=== PATIENT | male | born 1935 | race Caucasian/White ===

== ENCOUNTER 2017-06-09 14:08 | Observation (INO) | payer MEDICARE, BC ==
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
[2017-06-09] MEDS ORDERED: AMPICILLIN-SULBACTAM 3 GM in SODIUM CHLORIDE 0.9% 100 ML IVPB STA (15:32)
[2017-06-09] MEDS ORDERED: SODIUM CHLORIDE 0.9% 1,000 ML IV SCH (15:45)
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
[2017-06-09 16:13] LABS: Basophils % (A) 0 %; Eosinophils # (A) 0.3 k/uL (0-0.7); Eosinophils % (A) 3 %; HGB 11.9 gm/dL (13.0-17.5); Lymphocytes # (A) 0.4 k/uL (1.0-4.8); Lymphocytes % (A) 4 %; MCH 29.5 pg (25.0-35.0); MCV 92.1 fL (80.0-100.0); Mean Platelet Volume 7.3; Monocytes # (A) 0.8 k/uL (0-1.0); Monocytes % (A) 8 %; Neutrophils # (A) 8.4 k/uL (1.3-7.7); Neutrophils % (A) 82 %; Platelet Count 243 k/uL (150-450); RBC 4.02 m/uL (4.30-5.90); RDW 13.9 % (11.5-15.5); WBC 10.2 k/uL (3.8-10.6)
[2017-06-09 16:18] LABS: Albumin 3.5 g/dL (3.5-5.0); Calcium 8.9 mg/dL (8.4-10.2); Potassium 4.7 mmol/L (3.5-5.1); Total Bilirubin 0.8 mg/dL (0.2-1.3); Total Protein 5.9 g/dL (6.3-8.2)
[2017-06-09 16:26] LABS: Prothrombin Time 18.5 sec (9.0-12.0)
[2017-06-09] MEDS ORDERED: HYDROmorphone 1 MG/ML 1 ML SYRINGE IVP PRN (16:27)
[2017-06-09] MEDS ORDERED: NALOXONE 0.4 MG/ML 1 ML VIAL IV PRN (16:27)
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
[2017-06-09] MEDS ORDERED: MOXIFLOXACIN HCL 0.5% DROPS 3 ML BTL LEFT EYE ONE (17:45)
[2017-06-09 19:02] VITALS: BMI 27.9
[2017-06-09] MEDS ORDERED: GENTAMICIN 0.3% OPHTH DROPS 5 ML BTL BOTH EYES PRN ×2 (19:35→19:57)
[2017-06-09] MEDS ORDERED: ePHEDrine SULFATE/0.9% NACL/PF 50 MG/5 ML SYRINGE IV ONE (19:43)
[2017-06-09] MEDS ORDERED: PROPOFOL 10 MG/ML 20 ML VIAL IV ONE (19:43)
[2017-06-09] MEDS ORDERED: fentaNYL (PF) 50 MCG/ML 2 ML AMP ONE (19:43)
[2017-06-09] MEDS ORDERED: SODIUM CHLORIDE 0.9% 1,000 ML IV ONE (19:43)
[2017-06-09] MEDS ORDERED: NEOSTIGMINE 1 MG/ML 10 ML VIAL ONE (19:43)
[2017-06-09] MEDS ORDERED: GLYCOPYRROLATE 0.2 MG/ML 2 ML VIAL ONE (19:43)
[2017-06-09] MEDS ORDERED: ROCURONIUM BROMIDE 10 MG/ML 10 ML VIAL IV ONE (19:43)
[2017-06-09] MEDS ORDERED: EPINEPHrine 1 MG/ML 1 ML AMP IRRIGATION ONE (20:11)
[2017-06-09] MEDS: SODIUM CHLORIDE 0.9% 1,000 ML IV SCH ×2 (20:11→23:20)
[2017-06-09] MEDS: CYCLOPENTOLATE 1% OPHTH SOLN 2 ML BTL LEFT EYE SCH ×2 (20:12→20:13)
[2017-06-09] MEDS: PHENYLEPHRINE 10% OPHTH DROPS 5 ML BTL LEFT EYE SCH ×2 (20:12→20:13)
[2017-06-09] MEDS ORDERED: CHONDROITIN-SOD HYALURONATE 1 EACH SYRINGE (0.75 ML) INTRAOCULA ONE (20:14)
[2017-06-09] MEDS ORDERED: ATROPINE OPHTH SOLN 1% 5ML BTL LEFT EYE ONE (21:23)
[2017-06-09] MEDS ORDERED: GENTAMICIN 40 MG/ML 2 ML VIAL IRRIGATION ONE (21:24)
[2017-06-09] MEDS ORDERED: TIMOLOL 0.5% OPHTH SOLN (PF) 0.2 ML DROPERETTE LEFT EYE ONE (21:26)
--- NOTE | 2017-06-09 21:32 | P.OP ---
Date of Procedure: 06/09/17 Preoperative Diagnosis: ruptured globe, left Postoperative Diagnosis: same Procedure(s) Performed: exploration and repair of ruptured globe Implants: none Anesthesia: PRICILAA Surgeon: Fermin Ha Estimated Blood Loss (ml): 0 Pathology: other (uveal tissue) Condition: stable Disposition: observation Indications for Procedure: ruptured globe Operative Findings: probable loss of lens, vitreous, and retinal detachment
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
[2017-06-09] MEDS: ATROPINE OPHTH SOLN 1% 5ML BTL LEFT EYE SCH (23:18)
[2017-06-09] MEDS: AMPICILLIN-SULBACTAM 3 GM in SODIUM CHLORIDE 0.9% 100 ML IVPB SCH (23:24)
[2017-06-10] MEDS: AMPICILLIN-SULBACTAM 3 GM in SODIUM CHLORIDE 0.9% 100 ML IVPB SCH (05:36)
[2017-06-10] MEDS: MOXIFLOXACIN HCL 0.5% DROPS 3 ML BTL LEFT EYE SCH ×2 (05:37→09:21)
[2017-06-10 07:42] VITALS: PULSE 48
[2017-06-10 07:43] VITALS: BP 147/64; RESP 15; TEMP 97
[2017-06-10] MEDS ORDERED: WARFARIN 2.5 MG TAB PO SCH (09:00)
[2017-06-10] MEDS ORDERED: LISINOPRIL 5 MG TAB PO SCH (09:00)
[2017-06-10] MEDS ORDERED: PANTOPRAZOLE 40 MG TABLET PO SCH (09:00)
[2017-06-10] MEDS ORDERED: FUROSEMIDE 40 MG TAB PO SCH (09:00)
[2017-06-10] MEDS ORDERED: POTASSIUM CHLORIDE ER 20 MEQ TAB.ER PO SCH (09:00)
[2017-06-10] MEDS ORDERED: LEVOTHYROXINE 88 MCG TAB PO SCH (09:00)
[2017-06-10] MEDS ORDERED: MAGNESIUM OXIDE 400 MG TAB PO SCH (09:00)
[2017-06-10] MEDS ORDERED: ATENOLOL 25 MG TAB PO SCH (09:00)
[2017-06-10] MEDS ORDERED: ASPIRIN 81 MG PO SCH (09:00)
[2017-06-10] MEDS ORDERED: TIMOLOL 0.5% OPHTH DROPS 5 ML BTL LEFT EYE SCH (09:00)
[2017-06-10] MEDS ORDERED: AMIODARONE 200 MG TAB PO SCH (09:00)
[2017-06-10] MEDS: ATROPINE OPHTH SOLN 1% 5ML BTL LEFT EYE SCH ×2 (09:19→14:03)
[2017-06-10] MEDS ORDERED: prednisoLONE ACETATE 1% OPHTH DROPS 5 ML BTL LEFT EYE SCH (10:30)
--- NOTE | 2017-06-10 10:48 | P.PN ---
Progress Note - Text Progress Note Date: 06/10/17 S: 82 y/o POD 1 repair of left eye for ruptured globe. Rested comfortably through the night with head elevated. O: Va w/o correction 20/20 right NLP left IOP: 16 mm Hg @ 1030, OS 05 mm Hg @ 1030 Cornea clear OU Conj: unremarkable OD, left no Alin, incision clean AC: OD unremarkable, OS Chamber formed 5% hyphema Lens: OD 2-3+ NS, OS too unclear to define, godwin through pupil Iris: OD unremarkable, OS difficult view,grossly intact Fundus: OD not exmained, OS no red reflex. A: 1) traumatic rupture globe OS, post surgical repair, no signs of infection, guarded prognosis 2) hyphema OS, traumatic, controlled/manageable P: 1) discharge today on current drops and medications with follow up in [place] with [facility] to see retina next week. 2) protect left eye field artillery cannoneer limit activity and maintain head elevated at least 45 to allow blood to settle Vital Signs - Temperature Temperature: 97 F Temperature Source: Oral - Pulse Right Pulse Oximetery Pulse Rate: 48 Pulse Assessment Method: Palpation Flight Crew Time Clerk Pulse Rate: 50 Pulse Assessment Method: Telemetry - Respirations Respiratory Rate: 15 Oxygen Delivery Method: Room Air O2 Sat by Pulse Oximetry: 98 - Blood Pressure Right Arm Blood Pressure: 147/64 Blood Pressure Mean: 91 Blood Pressure Source: Automatic Cuff
--- NOTE | 2017-06-10 10:49 | P.DS ---
Providers Date of admission: 06/09/17 16:33 Expected date of discharge: 06/10/17 Attending physician: Fermin Ha Consults: [facility] [place] early next week. Primary care physician: Rcaquel Milton Patient Condition at Discharge: Serious Plan - Discharge Summary New Discharge Prescriptions: No Action Warfarin [Coumadin] 2.5 mg PO DAILY Omeprazole 40 mg PO DAILY Multivit-Min/FA/Lycopen/Lutein [Centrum Silver Tablet] 1 tab PO DAILY Lovastatin [Mevacor] 40 mg PO HS Lisinopril [Zestril] 5 mg PO DAILY Furosemide [Lasix] 40 mg PO BID Amiodarone [Cordarone] 200 mg PO DAILY Potassium Chloride [Klor-Con 20] 20 meq PO DAILY Magnesium Oxide [Mag-Ox] 250 mg PO DAILY Levothyroxine Sodium 88 mcg PO DAILY Ferrous Sulfate [Feosol] 325 mg PO DAILY Atenolol [Tenormin] 25 mg PO DAILY Aspirin 81 mg PO DAILY Discharge Medication List Amiodarone [Cordarone] 200 mg PO DAILY 06/09/17 [History] Aspirin 81 mg PO DAILY 06/09/17 [History] Atenolol [Tenormin] 25 mg PO DAILY 06/09/17 [History] Ferrous Sulfate [Feosol] 325 mg PO DAILY 06/09/17 [History] Furosemide [Lasix] 40 mg PO BID 06/09/17 [History] Levothyroxine Sodium 88 mcg PO DAILY 06/09/17 [History] Lisinopril [Zestril] 5 mg PO DAILY 06/09/17 [History] Lovastatin [Mevacor] 40 mg PO HS 06/09/17 [History] Magnesium Oxide [Mag-Ox] 250 mg PO DAILY 06/09/17 [History] Multivit-Min/FA/Lycopen/Lutein [Centrum Silver Tablet] 1 tab PO DAILY 06/09/17 [ History] Omeprazole 40 mg PO DAILY 06/09/17 [History] Potassium Chloride [Klor-Con 20] 20 meq PO DAILY 06/09/17 [History] Warfarin [Coumadin] 2.5 mg PO DAILY 06/09/17 [History] Follow up Appointment(s)/Referral(s): [facility] [place] [Other] - 06/13/17 (Need Retina specialist, pref DR. Racquel Davalos MD [Primary Care Provider] - 1-2 days Patient Instructions/Handouts: *Surgery [facility] - ([facility]) Eye Surgery Discharge Instructions Activity/Diet/Wound Care/Special Instructions: 1) continue home medications without changes 2) Moxifloxacin drops, 1 drop left eye 3 times daily 3) Prednisolone acetate 1% drops, left eye 4 times daily 4) timolol 0.5% drops, left eye 2 times daily. 5) keep left eye protected full timed with shield 6) Sleep with head elevated about 45 - keeps blood settled at bottom of eye and off pupil. 7) avoid showering and getting left eye wet. 8) limit weight limit to 20# or less 9) avoid bending over or staining 10 call [facility] for an appointment early next week. Discharge Disposition: HOME SELF-CARE
[2017-06-10] MEDS ORDERED: ATORVASTATIN 10 MG TAB PO SCH (21:00)
--- NOTE | 2017-06-11 13:25 | DS ---
DISCHARGE SUMMARY DATE OF ADMISSION: 06/09/2017 DATE OF DISCHARGE: 06/10/2017 PRIMARY REASON FOR ADMISSION: Traumatic injury to his left eye. PROCEDURES DURING THE COURSE OF ADMISSION: Repair of ruptured globe, left eye. MEDICATIONS ON DISCHARGE: Are primarily the same medications as listed on admission from home. These include amiodarone 200 mg daily, aspirin 81 mg daily atenolol 25 mg daily, iron sulfate 325 mg daily, Lasix 40 mg twice daily, levothyroxine 88 mcg daily. lisinopril 5 mg daily lovastatin 40 mg daily magnesium oxide 250 mg daily, multivitamin once daily, omeprazole 40 mg daily, potassium 10 mEq daily, potassium chloride 20 mEq once daily, and Coumadin 2.5 mg 6 of 7 days of the week. Additional medications at the time of discharge include moxifloxacin drops 1 in the left eye 3 times daily, prednisolone acetate 1% 1 drop in the left eye 4 times daily, Timolol 0.5% 1 drop twice daily in the left eye. ACTIVITY AND/OR ADDITIONAL INSTRUCTIONS: The patient needs to limit his weight lifting to 20 pounds or less. Avoid bending over or straining. He needs to sleep with his head elevated approximately 45 degrees and protect the left eye at a multimedia services manager basis with the eye shield. Followup appointment is with [facility] [address] in [place] and followup would be preferential to be with a retina specialist, one of the [facility]. NARRATIVE: The patient is an 82-year-old gentleman who presented approximately 24 hours following an injury sustained in his barn when a cow pinned him and he had apparently hit his head against the wall. Apparently, breaking the glasses which had entered the temporal aspect of the left eye. He had noticed an immediate change in vision, however, did not demonstrate a lot of particular discomfort and therefore followed up only the day after to the emergency room with a complaint of loss of vision and some discomfort in the left eye. At the time of admission in the emergency room, it was noted that the patient had demonstrated no better than light perception in the left eye and that there was obvious indications of dark pigmented material underneath the conjunctiva in the temporal aspect of the left eye. A CT scan performed during the course of the admission demonstrated no foreign objects within the eye. However, the contents of the eye were not readily illustrated in the CT scan either due to blood or inability to be able to see details just due to the type of study which was performed. Because of the injury to the eye and the concern of continued leaking of intra-ocular contents , the patient was then taken to the operating room and under general anesthesia had exploration as well as repair of the temporal aspect of the globe. During the course of the operation it became apparent that there was significant injury to the intra- ocular contents of the eye as there was no intra-ocular lens identified and it appeared under closer inspection that through the pupillary opening of the iris and having removed some of the hyphema which had been contained in the anterior chamber, that it appeared as if it was probably retina which was presenting itself into the pupillary aperture. His overnight course following the surgery was unremarkable and on the date of discharge, he denied significant discomfort within the eye and had required no supplemental analgesic medication for his eye. During the course of his hospitalization he was on Unasyn every 6 hours for a total number of infusions of 3. He was also placed on moxifloxacin 3 times daily drops in the left eye along with timolol 0.5% in the left eye twice daily to control any possible pressure as well as atropine to maintain dilation of the eye. Because of the difficulty of returning to [employer], arrangements are being made to have the patient follow up in [place] early this next week, preferably with 1 of the retina specialists at the [facility]. He was given phone numbers and instructions and discussion was made with his son as well to ensure that he obtains the appropriate followup for this severe injury. Prognosis for the eye itself is guarded at best. The patient was discharged to home in fair condition with followups as planned as noted above. MMODL / IJN: [id number] / DEAN
== END 2017-06-10 14:12 | disposition home or self-care (01) ==
LOC: EC 14:08 → 3SUR 16:33
PROVIDERS: ADMIT Ophthalmology; ATTEND Ophthalmology
DX: S05.32XA Ocular laceration without prolapse or loss of intraocular tissue, left eye, initial encounter (principal); S05.12XA Contusion of eyeball and orbital tissues, left eye, initial encounter; H33.22 Serous retinal detachment, left eye; W55.22XA Struck by cow, initial encounter; I69.398 Other sequelae of cerebral infarction; H53.9 Unspecified visual disturbance; I10 Essential (primary) hypertension; E78.5 Hyperlipidemia, unspecified; I48.91 Unspecified atrial fibrillation; I25.10 Atherosclerotic heart disease of native coronary artery without angina pectoris; Y93.K9 Activity, other involving animal care; Y92.71 Barn as the place of occurrence of the external cause; Z85.038 Personal history of other malignant neoplasm of large intestine; Z95.5 Presence of coronary angioplasty implant and graft; Z79.82 Long term (current) use of aspirin; Z79.899 Other long term (current) drug therapy; Z79.01 Long term (current) use of anticoagulants; Z87.891 Personal history of nicotine dependence; Z90.49 Acquired absence of other specified parts of digestive tract
CPT/HCPCS: 65285; 65815; 99284; 36415; 88305; 80053; 85025; 85610; 88313; 70480; G0378 ×2; J0171; J1580; J2710; J3010; J0295 ×2; J2704